=== PATIENT | male | born 1975 | race Caucasian/White ===

== ENCOUNTER 2017-05-21 14:00 | Emergency (ER) | payer OTHER ==
[2017-05-21 14:35] VITALS: BP 133/85
--- NOTE | 2017-05-21 15:13 | ED ---
Psychiatric Complaint - HPI Summary HPI Summary: 41 yr old male with the complaint of feeling sad and depressed for almost three weeks. He states he is sad over his chronic pain since his neck surgery in Oct of this year. He states he has never felt sad and depressed before. He lives with his girlfriend and she has custody of an 18 month old relative that they are taking care of. 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 He wants help with his feelings of sadness and depression. He denies ever having thoughts of harming himself or others. He states he has an appointment with the pain clinic in [place], [place]. He also states he want to quit smoking as well. He has an appointment with his primary care doctor next Weds the 26 of May for these issues as well. - History Of Current Complaint Chief Complaint: UCGeneralIllness Time Seen by Provider: 05/21/17 14:52 - Allergies/Home Medications Allergies/Adverse Reactions: Allergies Allergy/AdvReac Type Severity Reaction Status Date / Time SEASONAL Allergy Severe Congestion Uncoded 05/21/17 14:34 Home Medications: Home Medications NK [No Home Medications Reported] 05/21/17 [History Confirmed 05/21/17] PMH/Surg Hx/FS Hx/Imm Hx Endocrine/Hematology History: Denies: Hx Diabetes, Hx Thyroid Disease Cardiovascular History: Denies: Hx Hypertension Respiratory History: Denies: Hx Asthma, Hx Chronic Obstructive Pulmonary Disease (COPD) GI History: Denies: Hx Ulcer History: Reports: Hx Kidney Stones - 08/2015 AND EARLY 2015-STATES NO PROBLEMS RECENTLY Sensory History: Reports: Hx Contacts or Glasses - GLASSES Denies: Hx Hearing Aid Opthamlomology History: Reports: Hx Contacts or Glasses - GLASSES - Surgical History Surgery Procedure, Year, and Place: EYE PROCEDURE A BABY, cyst removal, back surgery oct 2016 Hx Anesthesia Reactions: No Infectious Disease History: No Infectious Disease History: Denies: Hx Hepatitis, Hx Human Immunodeficiency Virus (HIV), Traveled Outside the [place] in Last 30 Days - Family History Known Family History: Positive: Cardiac Disease, Hypertension, Other - denies any mental health or suicides in the family - Social History Alcohol Use: Rare Substance Use Type: Reports: None Smoking Status (MU): Light Every Day Tobacco Smoker Amount Used/How Often: 1 PPD X 22 YEARS Have You Smoked in the Last Year: Yes Review of Systems Constitutional: Negative Eyes: Negative Negative: Weakness, Numbness, Slurred Speech Positive: Depressed, Other - sad All Other Systems Reviewed And Are Negative: Yes Physical Exam Triage Information Reviewed: Yes Vital Signs On Initial Exam: Initial Vitals Temp Pulse Resp BP Pulse Ox 99.3 F 85 16 133/85 100 05/21/17 14:27 05/21/17 14:27 05/21/17 14:27 05/21/17 14:27 05/21/17 14:27 Vital Signs Reviewed: Yes Appearance: Positive: Well-Appearing, No Pain Distress, Well-Nourished Skin: Positive: Warm Head/Face: Positive: Normal Head/Face Inspection Eyes: Positive: EOMI, AN ENT: Positive: Normal ENT inspection Neck: Positive: Supple. Negative: Nuchal Rigidity Respiratory/Lung Sounds: Positive: Clear to Auscultation, Breath Sounds Present Cardiovascular: Positive: RRR. Negative: Murmur Abdomen Description: Negative: Distended Musculoskeletal: Positive: Strength/ROM Intact Neurological: Positive: Sensory/Motor Intact, Alert, Oriented to Person Place, Time, CN Intact II-III, Normal Gait, Speech Normal Psychiatric: Positive: Normal, Other - not homicidal or suicidal. - [place] Coma Scale Best Eye Response: 4 - Spontaneous Best Motor Response: 6 - Obeys Commands Best Verbal Response: 5 - Oriented Diagnostics - Vital Signs Vital Signs Temp Pulse Resp BP Pulse Ox 05/21/17 14:27 99.3 F 85 16 133/85 100 - Laboratory Lab Statement: Any lab studies that have been ordered have been reviewed, and results considered in the medical decision making process. Course/Dx - Course Course Of Treatment: 41 yr old male with new onset of depressed and sad feelings without suicidal or homicidal ideation. He has chronic pain and appointment with pain clinic on Jun 09, and also with his PMD next week. He states he will go to the [facility] after picking up the baby with his girlfriend later this afternoon. - Differential Dx/Clinical Impression Provider Diagnosis: Depressed mood Discharge - Discharge Plan Condition: Good Disposition: HOME Patient Education Materials: Depression (ED), Suicide Prevention for Adults (ED ) Referrals: Tosha Tang [Primary Care Provider] -
== END 2017-05-21 15:28 | disposition home or self-care (01) ==
LOC: UCCORT 14:00
DX: F32.9 Major depressive disorder, single episode, unspecified (principal); Z87.442 Personal history of urinary calculi; F17.210 Nicotine dependence, cigarettes, uncomplicated
CPT/HCPCS: 99211; G0463